=== PATIENT | male | born 1980 | race Two or more races ===

== ENCOUNTER 2017-02-22 10:04 | Observation (INO) | payer OTHER ==
[~2017-02-22] VITALS: Ht 182.9 cm; Wt 138.8 kg
[2017-02-22 10:32] LABS: Basophils # (auto) 0 uL; Basophils % (auto) 0.3 % (0.0-2.0); CONDITION Y; Eosinophils # (auto) 0.2 uL; Eosinophils % (auto) 1.6 % (0.0-7.0); Hemoglobin 16.1 g/dL (13.5-17.5); Lymphocytes % (auto) 30.8 % (10.0-50.0); Mean Corpuscular Hemoglobin 30.2 pg (28.0-32.0); Mean Corpuscular Volume 86.2 fL (80.0-100.0); Mean Platelet Volume 6.6 fL (6.9-10.8); Monocytes # (auto) 0.6 uL; Monocytes % (auto) 6.1 % (0.0-12.0); Neutrophils # (auto) 5.9 uL; Neutrophils % (auto) 61.2 % (37.0-80.0); Platelet Count (auto) 435 10^3/uL (140-450); Red Cell Distribution Width 13.3 % (11.8-14.3); White Blood Cell 9.7 10^3/uL (4.4-10.8)
[2017-02-22 10:57] LABS: Albumin 4.1 g/dL (3.4-5.0); Alkaline Phosphatase 96 U/L (45-117); Anion Gap 5 (5-15); Aspartate Aminotransferase 19 U/L (15-37); BUN/Creatinine Ratio 12.5; Blood Urea Nitrogen 10 mg/dL (7-18); Calcium 9.3 mg/dL (8.5-10.1); Carbon Dioxide 29 mmol/L (21-32); Chloride 103 mmol/L (98-107); GFR African American 139 mL/min; GFR Non-African American 115 mL/min; Glucose 89 mg/dL (74-106); Potassium 3.8 mmol/L (3.5-5.1); Sodium 137 mmol/L (136-145); Total Protein 8.6 g/dL (6.4-8.2)
[2017-02-22] MEDS ORDERED: ASPirin-EC 81 mg tab PO ONE (12:30)
[2017-02-22] MEDS ORDERED: KETOROLAC TROMETH 30 MG/ML 1ML VIAL IV ONE (13:00)
[2017-02-22 14:00] VITALS: BP 112/72
== END 2017-02-22 14:08 | disposition home or self-care (01) | DRG 313 ==
LOC: ER 10:04 → OVERFLOW 12:16 → ER 14:08
PROVIDERS: ADMIT Family Medicine; ATTEND Family Medicine
DX: R07.89 Other chest pain (principal); I10 Essential (primary) hypertension; Z82.49 Family history of ischemic heart disease and other diseases of the circulatory system; R06.02 Shortness of breath; Z83.3 Family history of diabetes mellitus
CPT/HCPCS: 36415; 71020; 80053; 84484; 85025; 85379; 93005; 96374; 99285; G0378; J1885

== ENCOUNTER 2018-03-07 03:51 | Emergency (ER) | payer OTHER, MEDICAID ==
[~2018-03-07] VITALS: Ht 182.9 cm; Wt 136.1 kg
[2018-03-07 05:52] VITALS: BP 111/72
== END 2018-03-07 07:28 | disposition left against medical advice (07) ==
LOC: ER 03:52
DX: M79.605 Pain in left leg (principal); Z53.21 Procedure and treatment not carried out due to patient leaving prior to being seen by health care provider